=== PATIENT | female | born 1990 | race Two or more races ===

== ENCOUNTER 2022-02-25 18:14 | Emergency (ER) | payer OTHER, SELFPAY ==
[2022-02-25 19:43] LABS: #Lymphocytes 1.3 thou/uL (1.20-3.40); #Monocytes 0.8 thou/uL (0.11-0.59); #Neutrophils 4.2 thou/uL (1.40-6.50); %Basophils 0.3 % (0.0-1.0); %Eosinophils 0.3 % (0.0-10.0); %Lymphocytes 20.4 % (21.0-51.0); %Monocytes 12.5 % (0.0-10.0); %Neutrophils 66.4 % (42.0-75.0); Hemoglobin 12.1 g/dL (12.0-16.0); Mean Corpuscular HGB CONC 32.8 g/dL (32.0-36.0); Mean Corpuscular Hemoglobin 30.7 pg (27.0-31.0); Mean Corpuscular Volume 93.6 fL (78.0-98.0); Platelet Count 258 thou/uL (130-400); RBC Distribution Width 11.1 % (11.5-14.5); Red Blood Cell (RBC) Count 3.94 mill/uL (4.20-5.40); White Blood Cell (WBC) Count 6.3 thou/uL (4.8-10.8)
[2022-02-25 20:02] LABS: ALT (SGPT) 18 U/L (8-55); AST (SGOT) 18 U/L (5-34); Albumin 4.5 g/dL (3.5-5.0); Alkaline Phosphatase 86 U/L (40-110); Anion Gap 13 mmol/L (10-20); BUN (Urea Nitrogen) 9 mg/dL (7.0-18.7); Bilirubin, Total 0.3 mg/dL (0.2-1.2); Calc. Creatinine Clearance 0 mL/min (70-130); Calcium 9.8 mg/dL (7.8-10.44); Carbon Dioxide 23 mmol/L (22-29); Chloride 104 mmol/L (98-107); Globulin 3.9 g/dL (2.4-3.5); Glucose 97 mg/dL (70-105); Protein, Total 8.4 g/dL (6.0-8.3); Sodium 136 mmol/L (136-145)
[2022-02-25 20:07] LABS: BHCG - Serum Negative (NEGATIVE); Pregs Control Background? CLEAR/WHITE (CLR/WHITE); Pregs Control Bar Appear? YES (CONTROL BAR)
[2022-02-25] MEDS ORDERED: Xylocaine 1% w/ Epi 1:100K 10 ML VIAL ONE (20:53)
[2022-02-25] MEDS ORDERED: Lidocaine 1% PF 5 ML VIAL ONE (20:57)
[2022-02-25] MEDS ORDERED: Bacitracin 1 PK ONE (21:15)
== END 2022-02-25 21:57 | disposition home or self-care (01) ==
LOC: ERS 18:14
DX: L03.011 Cellulitis of right finger (principal)
CPT/HCPCS: 26010; 36415; 80053; 84703; 85025